=== PATIENT | male | born 1960 | race Caucasian/White ===

== ENCOUNTER 2023-07-08 23:08 | Inpatient (IN) ==
--- NOTE | 2023-07-08 23:27 | Emergency Department Note ---
Impression & Plan Syncope and collapse, Upper back pain, Acute hypotension, PRESLEY (acute kidney injury), Elevated lactic acid level, Acute dehydration ED Provider Note HISTORY OF PRESENT ILLNESS: Patient is a 62-year-old male presenting with neck and upper back pain. Patient reportedly had 2 syncopal episodes this evening. The first syncopal episode he fell and struck the back of his head and neck. He reportedly was ambulatory after the incident and on initial EMS arrival the patient seemed to be more with it. A cervical collar was placed and he was very agitated and demanded that he walked to the stretcher. However, EMS reports that when he walked to the stretcher he had then again passed out. reports that for the first episode of syncope she heard a loud noise and went to find the patient and found him laying on the floor. EMS states that after a syncopal episode patient became hypotensive. Patient reports that he had a few "very small glasses of wine tonight." Patient is answering questions, but is sleepy and slow to respond. When asked for more details about the events leading up to him passing out twice, the patient reports "I do not know what happened." ROS: as above PHYSICAL EXAM: Constitutional: Patient appears in no acute distress. HENT: Head: Normocephalic and atraumatic. Eyes: EOMI, PERRL Mouth/Throat: Mucous membranes moist. Neck: Trachea midline. Neck supple. Cervical collar in place. Patient has lower cervical midline tenderness to palpation. Cardiovascular: RRR, No murmurs, rubs or gallops. Intact distal pulses. Pulmonary/Chest: No respiratory distress. Breath sounds clear and equal bilaterally. No wheezes or rales. No chest wall tenderness to palpation. Abdominal: Abdomen soft, no tenderness, rebound or guarding. Back: No midline spinal tenderness, no paraspinal tenderness, no CVA tenderness. Musculoskeletal: No edema, tenderness or deformity noted. Skin: Warm and dry. No rash, erythema, pallor or cyanosis Psychiatric: Appropriate mood and affect for situation. Neurological: Alert and keenly responsive. CN II-XII grossly intact, moving all extremities equally and fully. MDM: - Vitals signs showed hypotension. Patient profoundly hypotensive. Started on 2 L normal saline. However, pressure was only 89 systolic after a liter. Significant concern for dissection, given the patient's neck and upper back pain and his multiple syncopal episodes. He was started on peripheral Levophed for pressure support and he was given 1 mg of IV Ativan for his significant agitation in order to obtain CT imaging. His i-STAT creatinine is noted to be 3.0, but again significant concern for dissection so we will proceed with contrast scans. - History obtained via patient. History as above. - Chronic conditions affecting care: HTN - Differential diagnoses include, but are not limited to: Aortic dissection; pulmonary embolism; intracranial hemorrhage; CVA; ACS; dehydration; intra- abdominal trauma - Order placed for continuous cardiac monitoring. At this time, monitor showed rate of 80 bpm with normal sinus rhythm, per my interpretation. - External medical records reviewed. EMS run sheet was reviewed. Patient was hypotensive prehospital. Cervical collar applied prehospital. - EKG interpreted by myself showed normal sinus rhythm. Rate 72 bpm. QT 394. No acute ischemic changes. - Laboratory workup interpreted by myself showed normal WBC; stable electrolytes; PRESLEY (Cr 2.82); elevated lactate (3.3); elevated anion gap (12); hypermagnesemia (Mg 2.6); normal procalcitonin; normal troponin; elevated alcohol (150.8) - CT head wo contrast negative for acute pathology, per radiology - CT cervical and thoracic spines wo contrast negative for acute pathology, per radiology. - Patient was on levophed for about 1 hour for pressure support. He stood up and ripped off his collar and was complaining of upper back and left arm pain. He was given 50 mcg of IV fentanyl. However, on reassessment at 3:30 AM, the patient is still complaining of pain and reports the fentanyl did nothing. He was given 0.5 mg of IV Dilaudid. He is refusing to put back on the cervical collar. - CTA chest/abdomen/pelvis were ordered and obtained, but significant delay in radiology reads being dictated. Reads finally resulted at 04:30 AM and were negative for acute pathology. - Patient given a third 1L NS in ER. His blood pressure remained stable after fluid rehydration. - presents later and supplies a little bit more history. Reports the patient has been having generalized bodyaches and feeling generally unwell for the last 3 to 4 days. Reports he has been tolerating oral intake without difficulty at home. Repeat lactate is still elevated, though trending down to 2.1. Patient's syncope likely related to hypotension in the setting of his dehydration. COVID/flu/RSV swab was added to the workup. - Discussion was had with immigration case worker about patient's case and need for admission - Hospitalist consulted for admission - [facility]. I have personally spent 34 minutes of critical care time in the direct management of this patient. This includes bedside care, interpretation of diagnostic studies, and testing, discussion with consultants, patient, and family members, and other required patient management activities. This 34 minutes is in excess of all separately billable procedures. ASSESSMENT AND PLAN: Diagnosis: syncope; PRESLEY; elevated lactic acid; upper back pain; acute hypotension; acute dehydration Plan: admit Past Med/Surg History Medical History (Updated 07/09/23 @ 04:51 by Ana Rosa White MD) Leukopenia Surgical History S/P foot surgery, right 2002 - right plantar fascia foot surgery Family History Denies family history of Ovarian cancer Prostate cancer Myocardial infarction Breast cancer Colorectal cancer Social History (Updated 06/22/23 @ 07:58 by Faraz Solano LPN) Smoking Status: Never smoker Second Hand Exposure: No; Do You Dip or Chew Tobacco: No; Hx Alcohol Use: Yes Alcohol type: beer Alcohol Intake Frequency Comment: about 4-5 drinks per night about 5 days per week. Hx Substance Use: No Preferred Language: Persian Visual Impairment: No Limitations Hearing Ability: Normal marital status: Current Living Situation: Family current occupational status: employed current occupation: senior living advisor Feels Safe at Home: Yes Diet: other Diet Comment: healthy diet caffeine: Yes Dental Care, Regularly: Yes Physical Activity Frequency: 1-2 Times per Week Physical Activity Frequency Comment: Has slown down since he injured his elbow. Seatbelt Use: always Sunscreen Use: Yes Allergies Allergies Allergy/AdvReac Type Severity Reaction Status Date / Time No Known Allergies Allergy Unknown Verified 07/08/23 23:44 Home Meds Home Medications Medication Instructions Recorded Confirmed multivitamin 1 tab PO DAILY 07/08/23 07/08/23 Previous Rx's Medication Instructions Recorded rosuvastatin 20 mg tablet 20 mg PO DAILY #90 tabs 09/15/22 clopidogrel 75 mg tablet 75 mg PO DAILY #90 tabs 06/22/23 olmesartan 40 mg tablet 40 mg PO DAILY #90 tabs 06/22/23 Results & Data (ED) Vital Signs Vital Signs - 24 hr 07/08/23 23:14 07/08/23 23:19 07/08/23 23:22 Temperature 36.8 C Temperature Source Oral Pulse Rate 74 71 73 Pulse Rate [Apical] Pulse Rate from SpO2 Sensor 73 Pulse Rhythm Respiratory Rate 21 20 Respiratory Effort / Characteristics Non-Labored Spontaneous Respiratory Depth Normal Respiratory Pattern Regular Blood Pressure 73/60 L 73/45 L Blood Pressure [Right Arm] Blood Pressure Mean 64 48 Blood Pressure Mean [Right Arm] Pulse Oximetry 100 97 Oxygen Delivery Method Room Air Room Air Sepsis Recent Fever Within 48 Hours No Sepsis New/Unexplained Change in Mental Status Yes Sepsis Action Taken by Nursing No Action Required 07/08/23 23:26 07/08/23 23:30 07/08/23 23:30 Temperature Temperature Source Pulse Rate 73 79 80 Pulse Rate [Apical] Pulse Rate from SpO2 Sensor 68 102 H Pulse Rhythm Regular Respiratory Rate 16 20 23 Respiratory Effort / Characteristics Respiratory Depth Respiratory Pattern Blood Pressure 66/47 L Blood Pressure [Right Arm] Blood Pressure Mean 53 Blood Pressure Mean [Right Arm] Pulse Oximetry 95 98 98 Oxygen Delivery Method Room Air Room Air Sepsis Recent Fever Within 48 Hours Sepsis New/Unexplained Change in Mental Status Sepsis Action Taken by Nursing 07/08/23 23:31 07/08/23 23:38 07/08/23 23:40 Temperature Temperature Source Pulse Rate 75 85 81 Pulse Rate [Apical] Pulse Rate from SpO2 Sensor 82 81 81 Pulse Rhythm Respiratory Rate 21 16 18 Respiratory Effort / Characteristics Respiratory Depth Respiratory Pattern Blood Pressure 68/54 L 77/56 L 78/53 L Blood Pressure [Right Arm] Blood Pressure Mean 55 66 65 Blood Pressure Mean [Right Arm] Pulse Oximetry 94 98 97 Oxygen Delivery Method Sepsis Recent Fever Within 48 Hours Sepsis New/Unexplained Change in Mental Status Sepsis Action Taken by Nursing 07/08/23 23:45 07/09/23 00:00 07/09/23 00:05 Temperature Temperature Source Pulse Rate 84 80 79 Pulse Rate [Apical] Pulse Rate from SpO2 Sensor 80 86 Pulse Rhythm Respiratory Rate 16 18 22 Respiratory Effort / Characteristics Respiratory Depth Respiratory Pattern Blood Pressure 84/62 L 90/59 L 126/72 Blood Pressure [Right Arm] Blood Pressure Mean 69 69 90 Blood Pressure Mean [Right Arm] Pulse Oximetry 97 96 92 Oxygen Delivery Method Sepsis Recent Fever Within 48 Hours Sepsis New/Unexplained Change in Mental Status Sepsis Action Taken by Nursing 07/09/23 00:41 07/09/23 00:45 07/09/23 00:50 Temperature Temperature Source Pulse Rate 93 H 88 89 Pulse Rate [Apical] Pulse Rate from SpO2 Sensor 94 H 88 86 Pulse Rhythm Respiratory Rate 20 23 20 Respiratory Effort / Characteristics Respiratory Depth Respiratory Pattern Blood Pressure 123/93 117/74 117/77 Blood Pressure [Right Arm] Blood Pressure Mean 103 90 90 Blood Pressure Mean [Right Arm] Pulse Oximetry 93 99 100 Oxygen Delivery Method Sepsis Recent Fever Within 48 Hours Sepsis New/Unexplained Change in Mental Status Sepsis Action Taken by Nursing 07/09/23 00:55 07/09/23 01:00 07/09/23 01:05 Temperature Temperature Source Pulse Rate 89 90 91 H Pulse Rate [Apical] Pulse Rate from SpO2 Sensor 88 91 H 84 Pulse Rhythm Respiratory Rate 18 20 18 Respiratory Effort / Characteristics Respiratory Depth Respiratory Pattern Blood Pressure 117/97 129/84 131/80 Blood Pressure [Right Arm] Blood Pressure Mean 103 99 97 Blood Pressure Mean [Right Arm] Pulse Oximetry 99 97 97 Oxygen Delivery Method Sepsis Recent Fever Within 48 Hours Sepsis New/Unexplained Change in Mental Status Sepsis Action Taken by Nursing 07/09/23 01:15 07/09/23 01:20 07/09/23 01:25 Temperature Temperature Source Pulse Rate 92 H 93 H 92 H Pulse Rate [Apical] Pulse Rate from SpO2 Sensor 91 H 93 H 91 H Pulse Rhythm Respiratory Rate 18 20 22 Respiratory Effort / Characteristics Respiratory Depth Respiratory Pattern Blood Pressure 131/86 129/88 128/80 Blood Pressure [Right Arm] Blood Pressure Mean 101 101 96 Blood Pressure Mean [Right Arm] Pulse Oximetry 95 96 97 Oxygen Delivery Method Sepsis Recent Fever Within 48 Hours Sepsis New/Unexplained Change in Mental Status Sepsis Action Taken by Nursing 07/09/23 01:30 07/09/23 01:35 07/09/23 01:40 Temperature Temperature Source Pulse Rate 94 H 90 Pulse Rate [Apical] Pulse Rate from SpO2 Sensor 95 H 90 Pulse Rhythm Respiratory Rate 22 17 Respiratory Effort / Characteristics Respiratory Depth Respiratory Pattern Blood Pressure 126/83 135/85 124/85 Blood Pressure [Right Arm] Blood Pressure Mean 97 99 98 Blood Pressure Mean [Right Arm] Pulse Oximetry 97 97 Oxygen Delivery Method Sepsis Recent Fever Within 48 Hours Sepsis New/Unexplained Change in Mental Status Sepsis Action Taken by Nursing 07/09/23 01:45 07/09/23 01:50 07/09/23 02:00 Temperature Temperature Source Pulse Rate 89 93 H 92 H Pulse Rate [Apical] Pulse Rate from SpO2 Sensor 90 92 H Pulse Rhythm Respiratory Rate 16 20 17 Respiratory Effort / Characteristics Respiratory Depth Respiratory Pattern Blood Pressure 137/86 129/89 137/81 Blood Pressure [Right Arm] Blood Pressure Mean 103 102 97 Blood Pressure Mean [Right Arm] Pulse Oximetry 98 97 96 Oxygen Delivery Method Sepsis Recent Fever Within 48 Hours Sepsis New/Unexplained Change in Mental Status Sepsis Action Taken by Nursing 07/09/23 02:05 07/09/23 02:10 07/09/23 02:15 Temperature Temperature Source Pulse Rate 96 H 93 H 93 H Pulse Rate [Apical] Pulse Rate from SpO2 Sensor 97 H 93 H 89 Pulse Rhythm Respiratory Rate 16 17 16 Respiratory Effort / Characteristics Respiratory Depth Respiratory Pattern Blood Pressure 120/73 119/79 118/78 Blood Pressure [Right Arm] Blood Pressure Mean 88 92 91 Blood Pressure Mean [Right Arm] Pulse Oximetry 94 95 96 Oxygen Delivery Method Sepsis Recent Fever Within 48 Hours Sepsis New/Unexplained Change in Mental Status Sepsis Action Taken by Nursing 07/09/23 02:20 07/09/23 02:25 07/09/23 02:42 Temperature Temperature Source Pulse Rate 92 H 99 H 92 H Pulse Rate [Apical] Pulse Rate from SpO2 Sensor 93 H 98 H 92 H Pulse Rhythm Respiratory Rate 17 18 Respiratory Effort / Characteristics Respiratory Depth Respiratory Pattern Blood Pressure 122/78 108/74 134/80 Blood Pressure [Right Arm] Blood Pressure Mean 92 85 98 Blood Pressure Mean [Right Arm] Pulse Oximetry 96 96 99 Oxygen Delivery Method Sepsis Recent Fever Within 48 Hours Sepsis New/Unexplained Change in Mental Status Sepsis Action Taken by Nursing 07/09/23 03:30 Temperature Temperature Source Pulse Rate Pulse Rate [Apical] 86 Pulse Rate from SpO2 Sensor Pulse Rhythm Respiratory Rate 20 Respiratory Effort / Characteristics Non-Labored Respiratory Depth Normal Respiratory Pattern Blood Pressure Blood Pressure [Right Arm] 118/76 Blood Pressure Mean Blood Pressure Mean [Right Arm] 90 Pulse Oximetry 99 Oxygen Delivery Method Room Air Sepsis Recent Fever Within 48 Hours Sepsis New/Unexplained Change in Mental Status Sepsis Action Taken by Nursing Laboratory Data 07/08/23 23:21 07/08/23 23:21 Lab Results 07/08/23 07/08/23 07/08/23 Range/Units 23:21 23:26 23:40 WBC 6.61 (4.8-10.8) K/ul RBC 4.51 L (4.70-6.10) M/uL Hgb 14.6 (14.0-18.0) g/dl POC Hgb 14.6 (14.0-18.0) g/dl Hct 42.3 (42.0-52.0) % POC Hct 43 (42-52) % MCV 93.8 (80.0-100.0) fL MCH 32.4 (25.0-34.0) pg MCHC 34.5 (32.0-36.0) g/dL RDW Std Deviation 41.3 (36.4-46.3) fL RDW Coeff of Heydi 11.9 (11.5-14.5) % Plt Count 269 (130-400) K/uL MPV 10.1 (9.4-12.4) fL Immature Gran % (Auto) 0.3 % Neut % (Auto) 45.5 % Lymph % (Auto) 41.1 % Ashley % (Auto) 10.7 % Eos % (Auto) 1.8 % Baso % (Auto) 0.6 % Neut # (Auto) 3.00 (1.40-6.50) K/uL Lymph # (Auto) 2.72 (1.20-3.40) K/uL Ashley # (Auto) 0.71 H (0.11-0.59) K/uL Eos # (Auto) 0.12 (0.00-0.50) K/uL Baso # (Auto) 0.04 (0.00-0.20) K/uL Immature Gran # (Auto) 0.02 (0.01-0.20) K/uL PT 10.3 (9.0-12.0) Seconds INR 0.9 (0.9-1.1) POC Sodium 137 (135-144) mmol/L Sodium 136 (136-145) mmol/L POC Potassium 3.6 (3.3-5.0) mmol/L Potassium 3.5 (3.5-5.1) mmol/L POC Chloride 100 L (101-112) mmol/L Chloride 101 (98-107) mmol/L Carbon Dioxide 23 (21-32) mmol/L POC Total CO2 25 (24-31) mmol/L Anion Gap 12 H (3-11) POC Anion Gap 17.0 (16-25) mmol/L POC BUN 42 H (7-18) mg/dl BUN 47 H (6-23) mg/dl Creatinine 2.82 H (0.6-1.4) mg/dl POC Creatinine 3.0 H (0.6-1.3) mg/dl Est Cr Clr Drug Dosing 29.8 ml/min Est GFR ( Amer) 26.6 ml/min Est GFR (Non-Af Amer) 22.9 ml/min BUN/Creatinine Ratio 16.7 (10-20) Glucose 101 H (70-99(Fasting)) mg/dl POC Glucose (other) 95 (70-99) mg/dl Lactate (0.4-2.0) mmol/L Calcium 9.2 (8.6-10.3) mg/dl POC Ioniz Calcium Juan Antonio 1.07 L (1.12-1.32) mmol/l Magnesium 2.6 H (1.7-2.4) mg/dl Total Bilirubin 0.6 (0.2-1.0) mg/dl AST 21 (13-39) U/L ALT 30 (7-52) U/L Alkaline Phosphatase 61 (34-104) U/L Troponin I High Sens 3.7 (0-20) pg/ml Total Protein 7.1 (6.0-8.3) gm/dl Albumin 4.3 (3.4-5.0) gm/dl Globulin 2.8 (2.5-4.0) gm/dl Albumin/Globulin Ratio 1.5 (0.9-2) Procalcitonin 0.40 (0-0.5) ng/ml Ethyl Alcohol mg/dL 150.8 H (<10.0) mg/dl Blood Type O Positive Antibody Screen NEGATIVE 07/09/23 07/09/23 Range/Units 01:03 03:48 WBC (4.8-10.8) K/ul RBC (4.70-6.10) M/uL Hgb (14.0-18.0) g/dl POC Hgb (14.0-18.0) g/dl Hct (42.0-52.0) % POC Hct (42-52) % MCV (80.0-100.0) fL MCH (25.0-34.0) pg MCHC (32.0-36.0) g/dL RDW Std Deviation (36.4-46.3) fL RDW Coeff of Heydi (11.5-14.5) % Plt Count (130-400) K/uL MPV (9.4-12.4) fL Immature Gran % (Auto) % Neut % (Auto) % Lymph % (Auto) % Ashley % (Auto) % Eos % (Auto) % Baso % (Auto) % Neut # (Auto) (1.40-6.50) K/uL Lymph # (Auto) (1.20-3.40) K/uL Ashley # (Auto) (0.11-0.59) K/uL Eos # (Auto) (0.00-0.50) K/uL Baso # (Auto) (0.00-0.20) K/uL Immature Gran # (Auto) (0.01-0.20) K/uL PT (9.0-12.0) Seconds INR (0.9-1.1) POC Sodium (135-144) mmol/L Sodium (136-145) mmol/L POC Potassium (3.3-5.0) mmol/L Potassium (3.5-5.1) mmol/L POC Chloride (101-112) mmol/L Chloride (98-107) mmol/L Carbon Dioxide (21-32) mmol/L POC Total CO2 (24-31) mmol/L Anion Gap (3-11) POC Anion Gap (16-25) mmol/L POC BUN (7-18) mg/dl BUN (6-23) mg/dl Creatinine (0.6-1.4) mg/dl POC Creatinine (0.6-1.3) mg/dl Est Cr Clr Drug Dosing ml/min Est GFR ( Amer) ml/min Est GFR (Non-Af Amer) ml/min BUN/Creatinine Ratio (10-20) Glucose (70-99(Fasting)) mg/dl POC Glucose (other) (70-99) mg/dl Lactate 3.3 H* 2.1 H* (0.4-2.0) mmol/L Calcium (8.6-10.3) mg/dl POC Ioniz Calcium Juan Antonio (1.12-1.32) mmol/l Magnesium (1.7-2.4) mg/dl Total Bilirubin (0.2-1.0) mg/dl AST (13-39) U/L ALT (7-52) U/L Alkaline Phosphatase (34-104) U/L Troponin I High Sens (0-20) pg/ml Total Protein (6.0-8.3) gm/dl Albumin (3.4-5.0) gm/dl Globulin (2.5-4.0) gm/dl Albumin/Globulin Ratio (0.9-2) Procalcitonin (0-0.5) ng/ml Ethyl Alcohol mg/dL (<10.0) mg/dl Blood Type Antibody Screen Administered Medications Norepinephrine Bitartrate (Levophed/D5w) 4 mg in 250 mls @ 0 mls/hr IV .Q0M [facility]; Protocol Stop: 08/07/23 23:44 Last Titration: 07/09/23 02:38 Dose: 0 mcg/kg/min, 0 mls/hr Documented By: Admin: 07/09/23 00:01 Dose: 0.05 mcg/kg/min, 16.1 mls/hr Documented By: AN Co-signed By: TEE Discontinued Medications Fentanyl Citrate (Fentanyl Citrate Pf 100 Mcg/2 Ml Vial) 50 mcg IV NOW STA Stop: 07/09/23 02:32 Last Admin: 07/09/23 02:39 Dose: 50 mcg Documented By: TEE Hydromorphone HCl (Hydromorphone Inj 0.5 Mg/0.5 Ml Syr) 0.5 mg IV NOW STA Stop: 07/09/23 03:32 Last Admin: 07/09/23 03:33 Dose: 0.5 mg Documented By: HB Sodium Chloride (Nss) 2,000 mls @ 999 mls/hr IV .Q2H1M ONE Stop: 07/09/23 01:24 Last Infusion: 07/09/23 01:54 Dose: Infused Documented By: Admin: 07/08/23 23:29 Dose: 999 mls/hr Documented By: TEE Sodium Chloride (Nss) 1,000 mls @ 999 mls/hr IV .Q1H1M ONE Stop: 07/09/23 00:59 Last Infusion: 07/09/23 04:30 Dose: Infused Documented By: Admin: 07/09/23 03:25 Dose: 999 mls/hr Documented By: CLEMENCIA Ioversol (Optiray 320 125ml) 118 ml IV ONCE ONE Stop: 07/09/23 00:42 Last Admin: 07/09/23 00:41 Dose: 118 ml Documented By: MARY ANN Lorazepam (Lorazepam 1 Mg/1 Ml Syr Ed Inj Use) 1 mg IV ONE STA Stop: 07/08/23 23:53 Last Admin: 07/09/23 00:08 Dose: 1 mg Documented By: XIOMARA Imaging Data Radiologist's Impression: Cervical Spine CT 07/08/23 23:24 Exam(s): CT C SPINE EXAM: CT Cervical Spine Without Intravenous Contrast CLINICAL HISTORY: Reason for exam: neck pain s/p fall from standing. TECHNIQUE: Axial computed tomography images of the cervical spine without intravenous contrast. CTDI is 36.55 mGy and DLP is 4923.4 mGy-cm. Automated exposure control was utilized for the study. A dose lowering technique was utilized adhering to the principles of ALARA. COMPARISON: No relevant prior studies available. FINDINGS: Vertebrae: Unremarkable. No acute fracture. Discs/spinal canal/neural foramina: Multilevel cervical spondylopathy resulting in varying degrees of canal or foraminal stenosis Soft tissues: Unremarkable. IMPRESSION: No acute osseous pathology Multilevel cervical spondylopathy resulting in varying degrees of canal or foraminal stenosis Electronically signed by: Yonny Freedman MD 07/09/23 02:[address] 07/08/23 23:24 Exam(s): CT HEAD Without Contrast EXAM: CT Head Without Intravenous Contrast CLINICAL HISTORY: Reason for exam: confusion; fall from standing. TECHNIQUE: Axial computed tomography images of the head/brain without intravenous contrast. CTDI is 36.55 mGy and DLP is 4923.4 mGy-cm. Automated exposure control was utilized for the study. A dose lowering technique was utilized adhering to the principles of ALARA. COMPARISON: No relevant prior studies available. FINDINGS: Brain: Unremarkable. No hemorrhage. No significant white matter disease. No edema. Ventricles: Unremarkable. No ventriculomegaly. Bones/joints: Unremarkable. No acute fracture. Soft tissues: Unremarkable. Sinuses: Unremarkable as visualized. No acute sinusitis. Mastoid air cells: Unremarkable as visualized. No mastoid effusion. IMPRESSION: Normal head/brain CT. Electronically signed by: Yonny Freedman MD 07/09/23 02:[address] 07/08/23 23:24 Exam(s): CT T SPINE EXAM: CT Thoracic Spine Without Intravenous Contrast CLINICAL HISTORY: Reason for exam: upper back pain s/p fall from standing. TECHNIQUE: Axial computed tomography images of the thoracic spine without intravenous contrast. CTDI is 36.55 mGy and DLP is 4923.4 mGy-cm. Automated exposure control was utilized for the study. A dose lowering technique was utilized adhering to the principles of ALARA. COMPARISON: No relevant prior studies available. FINDINGS: Vertebrae: Unremarkable. No acute fracture. Discs/spinal canal/neural foramina: No acute findings. No spinal canal stenosis. Soft tissues: Unremarkable. IMPRESSION: Normal thoracic spine CT. Electronically signed by: Yonny Freedman MD 07/09/23 02:25 AM Chest CTA 07/08/23 23:28 Exam(s): CTA CHEST W/WO Contrast IV Amt: 118 ml opti 320 EXAM: CT Angiography Chest Without and With Intravenous Contrast CLINICAL HISTORY: Reason for exam: recurrent syncopal episodes; hypotension. TECHNIQUE: Axial computed tomographic angiography images of the chest without and with intravenous contrast. CTDI is 36.55 mGy and DLP is 4923.4 mGy-cm. Automated exposure control was utilized for the study. A dose lowering technique was utilized adhering to the principles of ALARA. MIP reconstructed images were created and reviewed. CONTRAST: Patient received 118 ml opti 320 of IV contrast COMPARISON: No relevant prior studies available. FINDINGS: Pulmonary arteries: No central pulmonary embolus Aorta: No acute findings. No thoracic aortic aneurysm. Lungs: Unremarkable. No mass. No consolidation. Pleural space: Unremarkable. No significant effusion. No pneumothorax. Heart: Unremarkable. No cardiomegaly. No significant pericardial effusion. No evidence of RV dysfunction. Bones/joints: No acute fracture. No dislocation. Soft tissues: Unremarkable. Lymph nodes: Unremarkable. No enlarged lymph nodes. IMPRESSION: Normal chest CTA. Electronically signed by: Yonny Freedman MD 07/09/23 04:01 AM Abdomen/Pelvis CTA 07/08/23 23:40 Exam(s): CTA ABDOMEN + PELVIS With Contrast IV Amt: 118 ml opti 320 EXAM: CT Angiography Abdomen and Pelvis With Intravenous Contrast CLINICAL HISTORY: Reason for exam: trauma; syncope. TECHNIQUE: Axial computed tomographic angiography images of the abdomen and pelvis with intravenous contrast. CTDI is 36.55 mGy and DLP is 4923.4 mGy-cm. Automated exposure control was utilized for the study. A dose lowering technique was utilized adhering to the principles of ALARA. MIP reconstructed images were created and reviewed. CONTRAST: Patient received 118 ml opti 320 of IV contrast COMPARISON: No relevant prior studies available. FINDINGS: VASCULATURE: Aorta: No evidence of aortic aneurysm or dissection along the aorta or subsequent branches. Celiac trunk and mesenteric arteries: No acute findings. No occlusion or significant stenosis. Renal arteries: No acute findings. No occlusion or significant stenosis. Iliac arteries: No acute findings. No occlusion or significant stenosis. Lung bases: Unremarkable. No mass. No consolidation. ABDOMEN: Liver: Unremarkable. No mass. Gallbladder and bile ducts: Unremarkable. No calcified stones. No ductal dilation. Pancreas: Unremarkable. No ductal dilation. No mass. Spleen: Unremarkable. No splenomegaly. Adrenals: Unremarkable. No mass. Kidneys and ureters: Unremarkable. No hydronephrosis. No solid mass. Stomach and bowel: Colonic diverticulosis. No evidence of diverticulitis. No obstruction. PELVIS: Appendix: Normal appendix. Bladder: Unremarkable. No mass. Reproductive: Unremarkable as visualized. ABDOMEN and PELVIS: Intraperitoneal space: Unremarkable. No significant fluid collection. No free air. Bones/joints: Mild celiac axis ostial stenosis. No acute fracture. No dislocation. Soft tissues: Gynecomastia. Lymph nodes: Unremarkable. No enlarged lymph nodes. IMPRESSION: 1. No evidence of traumatic aortic injury within the visualized aorta or subsequent branches. 2. No evidence of aortic aneurysm or dissection along the aorta or subsequent branches. 3. Mild celiac axis ostial stenosis. 4. No other acute findings. 5. Incidental findings as described. Electronically signed by: Bill Suresh MD 07/09/23 04:19 AM Discharge Plan Visit Data Chief Complaint: Fall Stated Complaint: Fall, Neck Pain, Dizziness ED Provider: Ana Rosa White Discharge Problem: Syncope and collapse, Upper back pain, Acute hypotension, PRESLEY (acute kidney injury), Elevated lactic acid level, Acute dehydration Forms Stand Alone Forms: My [facility] Prescriptions Prescriptions: No Action rosuvastatin 20 mg tablet 20 mg PO DAILY Qty: 90 3RF olmesartan 40 mg tablet 40 mg PO DAILY Qty: 90 3RF clopidogrel 75 mg tablet 75 mg PO DAILY Qty: 90 3RF multivitamin Tablet 1 tab PO DAILY Referrals Referrals: Zack Adamson MD [Primary Care Provider] -
[2023-07-08] MEDS: SODIUM CHLORIDE 0.9% 2,000 ML IV ONE (23:29)
[2023-07-08 23:38] LABS: iSTAT Hemoglobin 14.6 g/dl (14.0-18.0); iSTAT Ionized Calcium 1.07 mmol/l (1.12-1.32); iSTAT Potassium 3.6 mmol/L (3.3-5.0)
[2023-07-08] MEDS ORDERED: STAT IV Infusion **Titration per Protocol STA (23:52)
[2023-07-08 23:54] LABS: Hematocrit (blood only) 42.3 % (42.0-52.0); Hemoglobin 14.6 g/dl (14.0-18.0); Mean Corpuscular Hemoglobin 32.4 pg (25.0-34.0); Mean Corpuscular Hgb Conc 34.5 g/dL (32.0-36.0); Mean Corpuscular Volume 93.8 fL (80.0-100.0); Mean Platelet Volume 10.1 fL (9.4-12.4); Platelet Count 269 K/uL (130-400); RDW Coefficient of Variation 11.9 % (11.5-14.5); RDW Standard Deviation 41.3 fL (36.4-46.3); Red Blood Count 4.51 M/uL (4.70-6.10); White Blood Count 6.61 K/ul (4.8-10.8)
[2023-07-09] MEDS: NOREPINEPHRINE/D5W 4 MG/250 ML PLCT IV SCH (00:01)
[2023-07-09 00:04] LABS: Albumin Globulin Ratio 1.5 (0.9-2); Albumin Level 4.3 gm/dl (3.4-5.0); BUN Creatinine Ratio 16.7 (10-20); Bilirubin,Total 0.6 mg/dl (0.2-1.0); Calcium 9.2 mg/dl (8.6-10.3); Creatinine Clr Calc Pharmacy 29.8 ml/min; Est GFR (African American) 26.6 ml/min; Est GFR (Non-African American) 22.9 ml/min; Globulin 2.8 gm/dl (2.5-4.0); Magnesium 2.6 mg/dl (1.7-2.4); Potassium 3.5 mmol/L (3.5-5.1); Total Protein 7.1 gm/dl (6.0-8.3)
[2023-07-09] MEDS: LORazepam 1 MG/1 ML SYR ED Inj Use IV STA (00:08)
[2023-07-09 00:11] LABS: Troponin I High Sensitivity 3.7 pg/ml (0-20)
[2023-07-09 00:22] LABS: Basophils # (auto) 0.04 K/uL (0.00-0.20); Basophils % (auto) 0.6 %; Eosinophils # (auto) 0.12 K/uL (0.00-0.50); Eosinophils % (auto) 1.8 %; Immature Granulocytes # (auto) 0.02 K/uL (0.01-0.20); Immature Granulocytes % (auto) 0.3 %; Lymphocytes # (auto) 2.72 K/uL (1.20-3.40); Lymphocytes % (auto) 41.1 %; Monocytes # (auto) 0.71 K/uL (0.11-0.59); Monocytes % (auto) 10.7 %; Neutrophils % (auto) 45.5 %
[2023-07-09 00:24] LABS: INR 0.9 (0.9-1.1); Prothrombin Time 10.3 Seconds (9.0-12.0)
[2023-07-09] MEDS: OPTIRAY 320 125ml IV ONE (00:41)
--- NOTE | 2023-07-09 02:19 | CT Scan Report ---
Exam(s): CT C SPINE EXAM: CT Cervical Spine Without Intravenous Contrast CLINICAL HISTORY: Reason for exam: neck pain s/p fall from standing. TECHNIQUE: Axial computed tomography images of the cervical spine without intravenous contrast. CTDI is 36.55 mGy and DLP is 4923.4 mGy-cm. Automated exposure control was utilized for the study. A dose lowering technique was utilized adhering to the principles of ALARA. COMPARISON: No relevant prior studies available. FINDINGS: Vertebrae: Unremarkable. No acute fracture. Discs/spinal canal/neural foramina: Multilevel cervical spondylopathy resulting in varying degrees of canal or foraminal stenosis Soft tissues: Unremarkable. IMPRESSION: No acute osseous pathology Multilevel cervical spondylopathy resulting in varying degrees of canal or foraminal stenosis Electronically signed by: Yonny Freedman MD 07/09/23 02:18 AM
--- NOTE | 2023-07-09 02:26 | CT Scan Report ---
Exam(s): CT T SPINE EXAM: CT Thoracic Spine Without Intravenous Contrast CLINICAL HISTORY: Reason for exam: upper back pain s/p fall from standing. TECHNIQUE: Axial computed tomography images of the thoracic spine without intravenous contrast. CTDI is 36.55 mGy and DLP is 4923.4 mGy-cm. Automated exposure control was utilized for the study. A dose lowering technique was utilized adhering to the principles of ALARA. COMPARISON: No relevant prior studies available. FINDINGS: Vertebrae: Unremarkable. No acute fracture. Discs/spinal canal/neural foramina: No acute findings. No spinal canal stenosis. Soft tissues: Unremarkable. IMPRESSION: Normal thoracic spine CT. Electronically signed by: Yonny Freedman MD 07/09/23 02:25 AM
--- NOTE | 2023-07-09 02:27 | CT Scan Report ---
Exam(s): CT HEAD Without Contrast EXAM: CT Head Without Intravenous Contrast CLINICAL HISTORY: Reason for exam: confusion; fall from standing. TECHNIQUE: Axial computed tomography images of the head/brain without intravenous contrast. CTDI is 36.55 mGy and DLP is 4923.4 mGy-cm. Automated exposure control was utilized for the study. A dose lowering technique was utilized adhering to the principles of ALARA. COMPARISON: No relevant prior studies available. FINDINGS: Brain: Unremarkable. No hemorrhage. No significant white matter disease. No edema. Ventricles: Unremarkable. No ventriculomegaly. Bones/joints: Unremarkable. No acute fracture. Soft tissues: Unremarkable. Sinuses: Unremarkable as visualized. No acute sinusitis. Mastoid air cells: Unremarkable as visualized. No mastoid effusion. IMPRESSION: Normal head/brain CT. Electronically signed by: Yonny Freedman MD 07/09/23 02:26 AM
[2023-07-09] MEDS: fentaNYL citrate PF 100 MCG/2 ML VIAL IV STA (02:39)
[2023-07-09] MEDS: SODIUM CHLORIDE 0.9% 1,000 ML IV ONE ×2 (03:25→06:20)
[2023-07-09] MEDS: HYDROmorphone INJ 0.5 MG/0.5 ML SYR IV STA (03:33)
--- NOTE | 2023-07-09 04:02 | CT Scan Report ---
Exam(s): CTA CHEST W/WO Contrast IV Amt: 118 ml opti 320 EXAM: CT Angiography Chest Without and With Intravenous Contrast CLINICAL HISTORY: Reason for exam: recurrent syncopal episodes; hypotension. TECHNIQUE: Axial computed tomographic angiography images of the chest without and with intravenous contrast. CTDI is 36.55 mGy and DLP is 4923.4 mGy-cm. Automated exposure control was utilized for the study. A dose lowering technique was utilized adhering to the principles of ALARA. MIP reconstructed images were created and reviewed. CONTRAST: Patient received 118 ml opti 320 of IV contrast COMPARISON: No relevant prior studies available. FINDINGS: Pulmonary arteries: No central pulmonary embolus Aorta: No acute findings. No thoracic aortic aneurysm. Lungs: Unremarkable. No mass. No consolidation. Pleural space: Unremarkable. No significant effusion. No pneumothorax. Heart: Unremarkable. No cardiomegaly. No significant pericardial effusion. No evidence of RV dysfunction. Bones/joints: No acute fracture. No dislocation. Soft tissues: Unremarkable. Lymph nodes: Unremarkable. No enlarged lymph nodes. IMPRESSION: Normal chest CTA. Electronically signed by: Yonny Freedman MD 07/09/23 04:01 AM
--- NOTE | 2023-07-09 04:20 | CT Scan Report ---
Exam(s): CTA ABDOMEN + PELVIS With Contrast IV Amt: 118 ml opti 320 EXAM: CT Angiography Abdomen and Pelvis With Intravenous Contrast CLINICAL HISTORY: Reason for exam: trauma; syncope. TECHNIQUE: Axial computed tomographic angiography images of the abdomen and pelvis with intravenous contrast. CTDI is 36.55 mGy and DLP is 4923.4 mGy-cm. Automated exposure control was utilized for the study. A dose lowering technique was utilized adhering to the principles of ALARA. MIP reconstructed images were created and reviewed. CONTRAST: Patient received 118 ml opti 320 of IV contrast COMPARISON: No relevant prior studies available. FINDINGS: VASCULATURE: Aorta: No evidence of aortic aneurysm or dissection along the aorta or subsequent branches. Celiac trunk and mesenteric arteries: No acute findings. No occlusion or significant stenosis. Renal arteries: No acute findings. No occlusion or significant stenosis. Iliac arteries: No acute findings. No occlusion or significant stenosis. Lung bases: Unremarkable. No mass. No consolidation. ABDOMEN: Liver: Unremarkable. No mass. Gallbladder and bile ducts: Unremarkable. No calcified stones. No ductal dilation. Pancreas: Unremarkable. No ductal dilation. No mass. Spleen: Unremarkable. No splenomegaly. Adrenals: Unremarkable. No mass. Kidneys and ureters: Unremarkable. No hydronephrosis. No solid mass. Stomach and bowel: Colonic diverticulosis. No evidence of diverticulitis. No obstruction. PELVIS: Appendix: Normal appendix. Bladder: Unremarkable. No mass. Reproductive: Unremarkable as visualized. ABDOMEN and PELVIS: Intraperitoneal space: Unremarkable. No significant fluid collection. No free air. Bones/joints: Mild celiac axis ostial stenosis. No acute fracture. No dislocation. Soft tissues: Gynecomastia. Lymph nodes: Unremarkable. No enlarged lymph nodes. IMPRESSION: 1. No evidence of traumatic aortic injury within the visualized aorta or subsequent branches. 2. No evidence of aortic aneurysm or dissection along the aorta or subsequent branches. 3. Mild celiac axis ostial stenosis. 4. No other acute findings. 5. Incidental findings as described. Electronically signed by: Bill Suresh MD 07/09/23 04:19 AM
[2023-07-09] MEDS ORDERED: LORazepam 1 MG in SYRINGE 0.5 ML IV PRN (05:34)
[2023-07-09] MEDS ORDERED: LORazepam 2 MG in SYRINGE 1 ML IV PRN (05:34)
[2023-07-09] MEDS ORDERED: LORazepam 3 MG in SYRINGE 1.5 ML IV PRN (05:34)
[2023-07-09] MEDS ORDERED: Ativan IV Alcohol Withdrawal--Active Protocol IV PRN (05:34)
[2023-07-09] MEDS ORDERED: THIAMINE HCL 100 MG/ML 2 ML VIAL IM STA (05:34)
--- NOTE | 2023-07-09 05:40 | History & Physical Report ---
Date of Service July 09, 2023 Assessment & Plan (1) Syncope and collapse: (2) Acute hypotension: (3) Acute dehydration: (4) PRESLEY (acute kidney injury): (5) Upper back pain: (6) Neck pain: (7) Polyarthralgia: (8) Elevated lactic acid level: (9) Alcohol intoxication: (10) Hyperlipidemia: (11) Carotid artery plaque: (12) Hypertension: Plan Syncope and collapse/acute hypotension/dehydration- Lowest recorded blood pressure 73/60, with improvement to 112/60 after 3 liters normal saline Give an additional 1 L normal saline bolus now, then maintenance fluids normal saline at 100 mL/h Patient did require Levophed briefly to maintain blood pressure while becoming rehydrated, and has successfully maintained blood pressure in the 112 area off of Levophed Polyarthralgia, generalized fatigue, generalized weakness- Patient reports symptoms began about 4 days ago with a 24-hour interval of aching and feeling feverish, which she thought was a virus, which did improve somewhat. He did pass out 2 days after the first symptoms, but continued to try to drink what he thought was enough fluids His reports that he was out mowing the lawn over the past week. Patient will have testing added: CK to assess for possible rhabdomyolysis, and tickborne illnesses panel Acetaminophen 650 mg by mouth every 6 hours as needed for mild pain or fever Tramadol 50 mg by mouth every 4 hours as needed for moderate pain Dilaudid 0.5 mg IV every 3 hours as needed for severe pain Patient did receive fentanyl 50 mcg IV and Dilaudid 0.5 mg IV from the ED Of note, COVID, flu and RSV studies negative Acute kidney injury- Creatinine 2.82, with base 1.23 Hold olmesartan Received 3 L normal saline from the ED Will give an additional fourth liter bolus now, and then maintenance fluids at 100 mL/h Repeat renal function panel at this time, and then every morning Ordering CK as noted above to check for rhabdomyolysis and follow serially if elevated Alcohol intoxication- Alcohol level 150.8 Patient reports he drinks several small glasses of wine daily He has never had issues with alcohol withdrawal, but will be placed on AWSS protocol Thiamine 100 mg IV now, and then 100 mg p.o. every morning Folic acid 1 mg IV now, and then 1 mg p.o. every morning Carotid artery plaquing- Continue clopidogrel 75 mg daily Hyperlipidemia- Temporarily hold rosuvastatin History of Present Illness Chief Complaint: The patient presents to the emergency department with complaint of neck, upper back and bilateral arm pain after 2 syncopal episodes this evening. The patient reports he first had symptoms on Wednesday night, 4 nights ago, when he had some generalized muscle aches the last about 24 hours and thought related to a viral process. He felt better the next day Wednesday, and then the following day Wednesday he passed out 1 time when going from sitting to standing. He has been feeling generally achy and fatigued the next day Wednesday, however made today okay. The day of admission today , he had 2 syncopal episodes. First time he fell backwards, was seen by EMS, who placed a cervical collar on him. He insisted on walking to the stretcher, and en route to the stretcher he passed out a second time. The first time this evening, the patient was on unwitnessed, but the heard a loud noise, and ran to find him laying on the floor. The second episode this evening, EMS reports that the patient became hypotensive. Upon arrival to the emergency department, the patient was hypotensive, received aggressive fluid resuscitation, and did transiently need to be on Levophed. Once his blood pressure improved with 3 L of fluid resuscitation, Levophed a was able to be discontinued. Lowest blood pressure recorded in the ED was 73/60, and after 3 L of fluid was maintained 112/64. Primary Care Provider: Zack Adamson MD The patient is a 62-year-old male with a past medical history including hypertension, hyperlipidemia, carotid artery plaquing and daily alcohol use. He presents to the emergency department with symptoms as noted above. Prior to 4 days ago, he had not had any symptoms were related to syncope and or collapse. He reports drinking several small glasses of wine daily, and last night's intake was roughly the same as usual. Allergies Allergy/AdvReac Type Severity Reaction Status Date / Time No Known Allergies Allergy Unknown Verified 07/08/23 23:44 Home Medications Medication Instructions Recorded Confirmed Type rosuvastatin 20 mg tablet 20 mg PO DAILY #90 tabs 09/15/22 07/08/23 Rx clopidogrel 75 mg tablet 75 mg PO DAILY #90 tabs 06/22/23 07/08/23 Rx olmesartan 40 mg tablet 40 mg PO DAILY #90 tabs 06/22/23 07/08/23 Rx multivitamin 1 tab PO DAILY 07/08/23 07/08/23 History Past Med/Surg History Medical History (Updated 07/09/23 @ 06:27 by Alverto Sanchez MD) Hypertension Hyperlipidemia Carotid artery plaque Leukopenia Surgical History S/P foot surgery, right 2003 - right plantar fascia foot surgery Family History Denies family history of Ovarian cancer Prostate cancer Myocardial infarction Breast cancer Colorectal cancer Social History (Updated 06/22/23 @ 07:58 by Faraz Solano LPN) Smoking Status: Never smoker Second Hand Exposure: No; Do You Dip or Chew Tobacco: No; Hx Alcohol Use: Yes Alcohol type: beer Alcohol Intake Frequency Comment: about 4-5 drinks per night about 5 days per week. Hx Substance Use: No Preferred Language: Georgian Visual Impairment: No Limitations Hearing Ability: Normal marital status: Current Living Situation: Family current occupational status: employed current occupation: undergraduate advisor Feels Safe at Home: Yes Diet: other Diet Comment: healthy diet caffeine: Yes Dental Care, Regularly: Yes Physical Activity Frequency: 1-2 Times per Week Physical Activity Frequency Comment: Has slown down since he injured his elbow. Seatbelt Use: always Sunscreen Use: Yes Review of Systems Review of Systems: The patient denies chest pain, palpitations, shortness of breath, dyspnea on exertion, cough, lower extremity swelling, sore throat, fevers, chills, sweats, nausea, vomiting, diarrhea , constipation, abdominal pain, pelvic pain, blood in urine or stool, dysuria, urinary frequency or urgency, rash, abnormal bruising or bleeding, focal weakness, numbness or tingling in arms or legs, or night sweats. The review of systems is otherwise negative other than for that already noted above, and at least 10 systems have been reviewed. Physical Exam Physical Exam: The patient is awake, alert and oriented 3, well developed and well nourished, normocephalic and atraumatic, lying in bed and in mild distress secondary to generalized myalgias HEENT--PERRL, EOMI, mucous membranes and oropharynx mildly dry. Neck--supple. No JVD. No bruits. Thyroid normal, trachea midline, no adenopathy. Heart--normal S1 and S2. No murmurs, rubs or gallops. Lungs--clear bilaterally, no respiratory distress, no accessory muscle use. Abdomen--normal bowel sounds and soft. Nontender. Nondistended, no hernias or masses, no organomegaly. Extremities--No edema. Dermatologic--normal skin turgor, normal color, no abnormal lymph nodes, no rash. Neurologic--cranial nerves II through XII grossly intact. Rheumatologic--full, normal range of motion but slow due to generalized aching Psychiatric--normal affect. Results & Data Results & Data Vital Signs (Past 12 Hours) Vital Signs Temp Pulse Pulse Resp BP BP Pulse Ox 07/09/23 03:51 75 07/09/23 03:30 86 20 118/76 99 07/09/23 02:42 92 H 134/80 99 07/09/23 02:25 99 H 18 108/74 96 07/09/23 02:20 92 H 17 122/78 96 07/09/23 02:15 93 H 16 118/78 96 07/09/23 02:10 93 H 17 119/79 95 07/09/23 02:05 96 H 16 120/73 94 07/09/23 02:00 92 H 17 137/81 96 07/09/23 01:50 93 H 20 129/89 97 07/09/23 01:45 89 16 137/86 98 07/09/23 01:40 90 17 124/85 97 07/09/23 01:35 135/85 07/09/23 01:30 94 H 22 126/83 97 07/09/23 01:25 92 H 22 128/80 97 07/09/23 01:20 93 H 20 129/88 96 07/09/23 01:15 92 H 18 131/86 95 07/09/23 01:05 91 H 18 131/80 97 07/09/23 01:00 90 20 129/84 97 07/09/23 00:55 89 18 117/97 99 07/09/23 00:50 89 20 117/77 100 07/09/23 00:45 88 23 117/74 99 07/09/23 00:41 93 H 20 123/93 93 07/09/23 00:05 79 22 126/72 92 07/09/23 00:00 80 18 90/59 L 96 07/08/23 23:45 84 16 84/62 L 97 07/08/23 23:40 81 18 78/53 L 97 07/08/23 23:38 85 16 77/56 L 98 07/08/23 23:31 75 21 68/54 L 94 07/08/23 23:30 80 23 98 07/08/23 23:30 79 20 98 07/08/23 23:26 73 16 66/47 L 95 07/08/23 23:22 73 20 73/45 L 97 07/08/23 23:19 71 07/08/23 23:14 36.8 C 74 21 73/60 L 100 O2 Del Method 07/09/23 03:51 07/09/23 03:30 Room Air 07/09/23 02:42 07/09/23 02:25 07/09/23 02:20 07/09/23 02:15 07/09/23 02:10 07/09/23 02:05 07/09/23 02:00 07/09/23 01:50 07/09/23 01:45 07/09/23 01:40 07/09/23 01:35 07/09/23 01:30 07/09/23 01:25 07/09/23 01:20 07/09/23 01:15 07/09/23 01:05 07/09/23 01:00 07/09/23 00:55 07/09/23 00:50 07/09/23 00:45 07/09/23 00:41 07/09/23 00:05 07/09/23 00:00 07/08/23 23:45 07/08/23 23:40 07/08/23 23:38 07/08/23 23:31 07/08/23 23:30 Room Air 07/08/23 23:30 Room Air 07/08/23 23:26 07/08/23 23:22 Room Air 07/08/23 23:19 07/08/23 23:14 Room Air Laboratory Results Laboratory Results WBC 6.61 K/ul (4.8-10.8) 07/08/23 23:21 RBC 4.51 M/uL (4.70-6.10) L 07/08/23 23:21 Hgb 14.6 g/dl (14.0-18.0) 07/08/23 23:21 POC Hgb 14.6 g/dl (14.0-18.0) 07/08/23 23:26 Hct 42.3 % (42.0-52.0) 07/08/23 23: POC Hct 43 % (42-52) 07/08/23 23: MCV 93.8 fL (80.0-100.0) 07/08/23 23:21 MCH 32.4 pg (25.0-34.0) 07/08/23 23: MCHC 34.5 g/dL (32.0-36.0) 07/08/23 23: RDW Std Deviation 41.3 fL (36.4-46.3) 07/08/23 23: RDW Coeff of Heydi 11.9 % (11.5-14.5) 07/08/23 23: Plt Count 269 K/uL (130-400) 07/08/23 23:21 MPV 10.1 fL (9.4-12.4) 07/08/23 23:21 Immature Gran % (Auto) 0.3 % 07/08/23 23:21 Neut % (Auto) 45.5 % 07/08/23 23:21 Lymph % (Auto) 41.1 % 07/08/23 23:21 [place] % (Auto) 10.7 % 07/08/23 23:21 Eos % (Auto) 1.8 % 07/08/23 23:21 Baso % (Auto) 0.6 % 07/08/23 23:21 Neut # (Auto) 3.00 K/uL (1.40-6.50) 07/08/23 23:21 Lymph # (Auto) 2.72 K/uL (1.20-3.40) 07/08/23 23:21 [place] # (Auto) 0.71 K/uL (0.11-0.59) H 07/08/23 23:21 Eos # (Auto) 0.12 K/uL (0.00-0.50) 07/08/23 23:21 Baso # (Auto) 0.04 K/uL (0.00-0.20) 07/08/23 23:21 Immature Gran # (Auto) 0.02 K/uL (0.01-0.20) 07/08/23 23:21 PT 10.3 Seconds (9.0-12.0) 07/08/23 23:21 INR 0.9 (0.9-1.1) 07/08/23 23:21 POC Sodium 137 mmol/L (135-144) 07/08/23 23:26 Sodium 136 mmol/L (136-145) 07/08/23 23:21 POC Potassium 3.6 mmol/L (3.3-5.0) 07/08/23 23:26 Potassium 3.5 mmol/L (3.5-5.1) 07/08/23 23:21 POC Chloride 100 mmol/L (101-112) L 07/08/23 23:26 Chloride 101 mmol/L (98-107) 07/08/23 23:21 Carbon Dioxide 23 mmol/L (21-32) 07/08/23 23:21 POC Total CO2 25 mmol/L (24-31) 07/08/23 23:26 Anion Gap 12 (3-11) H 07/08/23 23:21 POC Anion Gap 17.0 mmol/L (16-25) 07/08/23 23:26 POC BUN 42 mg/dl (7-18) H 07/08/23 23:26 BUN 47 mg/dl (6-23) H 07/08/23 23:21 Creatinine 2.82 mg/dl (0.6-1.4) H 07/08/23 23:21 POC Creatinine 3.0 mg/dl (0.6-1.3) H 07/08/23 23:26 Est Cr Clr Drug Dosing 29.8 ml/min 07/08/23 23:21 Est GFR ( Amer) 26.6 ml/min 07/08/23 23:21 Est GFR (Non-Af Amer) 22.9 ml/min 07/08/23 23:21 BUN/Creatinine Ratio 16.7 (10-20) 07/08/23 23:21 Glucose 101 mg/dl (70-99(Fasting)) H 07/08/23 23:21 POC Glucose (other) 95 mg/dl (70-99) 07/08/23 23:26 Lactate 2.1 mmol/L (0.4-2.0) H* 07/09/23 03:48 Calcium 9.2 mg/dl (8.6-10.3) 07/08/23 23:21 POC Ioniz Calcium Juan Antonio 1.07 mmol/l (1.12-1.32) L 07/08/23 23:26 Magnesium 2.6 mg/dl (1.7-2.4) H 07/08/23 23:21 Total Bilirubin 0.6 mg/dl (0.2-1.0) 07/08/23 23:21 AST 21 U/L (13-39) 07/08/23 23:21 ALT 30 U/L (7-52) 07/08/23 23:21 Alkaline Phosphatase 61 U/L (34-104) 07/08/23 23:21 Troponin I High Sens 3.7 pg/ml (0-20) 07/08/23 23:21 Total Protein 7.1 gm/dl (6.0-8.3) 07/08/23 23:21 Albumin 4.3 gm/dl (3.4-5.0) 07/08/23 23:21 Globulin 2.8 gm/dl (2.5-4.0) 07/08/23 23:21 Albumin/Globulin Ratio 1.5 (0.9-2) 07/08/23 23:21 Procalcitonin 0.40 ng/ml (0-0.5) 07/08/23 23:21 Ethyl Alcohol mg/dL 150.8 mg/dl (<10.0) H 07/08/23 23:40 SARS-CoV-2 (PCR) NEGATIVE (Negative) 07/09/23 04:40 Influenza Type A (PCR) Negative (Neg) 07/09/23 04:40 Influenza Type B (PCR) Negative (Neg) 07/09/23 04:40 RSV (RT-PCR) Negative (Neg) 07/09/23 04:40 Blood Type O Positive 07/08/23 23:40 Antibody Screen NEGATIVE 07/08/23 23:[address] 07/08/23 23:24 Exam(s): CT C SPINE EXAM: CT Cervical Spine Without Intravenous Contrast CLINICAL HISTORY: Reason for exam: neck pain s/p fall from standing. TECHNIQUE: Axial computed tomography images of the cervical spine without intravenous contrast. CTDI is 36.55 mGy and DLP is 4923.4 mGy-cm. Automated exposure control was utilized for the study. A dose lowering technique was utilized adhering to the principles of ALARA. COMPARISON: No relevant prior studies available. FINDINGS: Vertebrae: Unremarkable. No acute fracture. Discs/spinal canal/neural foramina: Multilevel cervical spondylopathy resulting in varying degrees of canal or foraminal stenosis Soft tissues: Unremarkable. IMPRESSION: No acute osseous pathology Multilevel cervical spondylopathy resulting in varying degrees of canal or foraminal stenosis Electronically signed by: Yonny Freedman MD 07/09/23 02:[address] 07/08/23 23:24 Exam(s): CT HEAD Without Contrast EXAM: CT Head Without Intravenous Contrast CLINICAL HISTORY: Reason for exam: confusion; fall from standing. TECHNIQUE: Axial computed tomography images of the head/brain without intravenous contrast. CTDI is 36.55 mGy and DLP is 4923.4 mGy-cm. Automated exposure control was utilized for the study. A dose lowering technique was utilized adhering to the principles of ALARA. COMPARISON: No relevant prior studies available. FINDINGS: Brain: Unremarkable. No hemorrhage. No significant white matter disease. No edema. Ventricles: Unremarkable. No ventriculomegaly. Bones/joints: Unremarkable. No acute fracture. Soft tissues: Unremarkable. Sinuses: Unremarkable as visualized. No acute sinusitis. Mastoid air cells: Unremarkable as visualized. No mastoid effusion. IMPRESSION: Normal head/brain CT. Electronically signed by: Yonny Freedman MD 07/09/23 02:[address] 07/08/23 23:24 Exam(s): CT T SPINE EXAM: CT Thoracic Spine Without Intravenous Contrast CLINICAL HISTORY: Reason for exam: upper back pain s/p fall from standing. TECHNIQUE: Axial computed tomography images of the thoracic spine without intravenous contrast. CTDI is 36.55 mGy and DLP is 4923.4 mGy-cm. Automated exposure control was utilized for the study. A dose lowering technique was utilized adhering to the principles of ALARA. COMPARISON: No relevant prior studies available. FINDINGS: Vertebrae: Unremarkable. No acute fracture. Discs/spinal canal/neural foramina: No acute findings. No spinal canal stenosis. Soft tissues: Unremarkable. IMPRESSION: Normal thoracic spine CT. Electronically signed by: Yonny Freedman MD 07/09/23 02:25 AM Chest CTA 07/08/23 23:28 Exam(s): CTA CHEST W/WO Contrast IV Amt: 118 ml opti 320 EXAM: CT Angiography Chest Without and With Intravenous Contrast CLINICAL HISTORY: Reason for exam: recurrent syncopal episodes; hypotension. TECHNIQUE: Axial computed tomographic angiography images of the chest without and with intravenous contrast. CTDI is 36.55 mGy and DLP is 4923.4 mGy-cm. Automated exposure control was utilized for the study. A dose lowering technique was utilized adhering to the principles of ALARA. MIP reconstructed images were created and reviewed. CONTRAST: Patient received 118 ml opti 320 of IV contrast COMPARISON: No relevant prior studies available. FINDINGS: Pulmonary arteries: No central pulmonary embolus Aorta: No acute findings. No thoracic aortic aneurysm. Lungs: Unremarkable. No mass. No consolidation. Pleural space: Unremarkable. No significant effusion. No pneumothorax. Heart: Unremarkable. No cardiomegaly. No significant pericardial effusion. No evidence of RV dysfunction. Bones/joints: No acute fracture. No dislocation. Soft tissues: Unremarkable. Lymph nodes: Unremarkable. No enlarged lymph nodes. IMPRESSION: Normal chest CTA. Electronically signed by: Yonny Freedman MD 07/09/23 04:01 AM Abdomen/Pelvis CTA 07/08/23 23:40 Exam(s): CTA ABDOMEN + PELVIS With Contrast IV Amt: 118 ml opti 320 EXAM: CT Angiography Abdomen and Pelvis With Intravenous Contrast CLINICAL HISTORY: Reason for exam: trauma; syncope. TECHNIQUE: Axial computed tomographic angiography images of the abdomen and pelvis with intravenous contrast. CTDI is 36.55 mGy and DLP is 4923.4 mGy-cm. Automated exposure control was utilized for the study. A dose lowering technique was utilized adhering to the principles of ALARA. MIP reconstructed images were created and reviewed. CONTRAST: Patient received 118 ml opti 320 of IV contrast COMPARISON: No relevant prior studies available. FINDINGS: VASCULATURE: Aorta: No evidence of aortic aneurysm or dissection along the aorta or subsequent branches. Celiac trunk and mesenteric arteries: No acute findings. No occlusion or significant stenosis. Renal arteries: No acute findings. No occlusion or significant stenosis. Iliac arteries: No acute findings. No occlusion or significant stenosis. Lung bases: Unremarkable. No mass. No consolidation. ABDOMEN: Liver: Unremarkable. No mass. Gallbladder and bile ducts: Unremarkable. No calcified stones. No ductal dilation. Pancreas: Unremarkable. No ductal dilation. No mass. Spleen: Unremarkable. No splenomegaly. Adrenals: Unremarkable. No mass. Kidneys and ureters: Unremarkable. No hydronephrosis. No solid mass. Stomach and bowel: Colonic diverticulosis. No evidence of diverticulitis. No obstruction. PELVIS: Appendix: Normal appendix. Bladder: Unremarkable. No mass. Reproductive: Unremarkable as visualized. ABDOMEN and PELVIS: Intraperitoneal space: Unremarkable. No significant fluid collection. No free air. Bones/joints: Mild celiac axis ostial stenosis. No acute fracture. No dislocation. Soft tissues: Gynecomastia. Lymph nodes: Unremarkable. No enlarged lymph nodes. IMPRESSION: 1. No evidence of traumatic aortic injury within the visualized aorta or subsequent branches. 2. No evidence of aortic aneurysm or dissection along the aorta or subsequent branches. 3. Mild celiac axis ostial stenosis. 4. No other acute findings. 5. Incidental findings as described. Electronically signed by: Bill Suresh MD 07/09/23 04:19 AM Code Status & VTE Plan Code Status Full code PG Care Time/CCT Total # of Minutes Spent Total Time Spent with Patient: Total time spent is greater than 50% in coordination of care (as documented) at patient's floor/unit and/or counseling patient: Coding Level of Care Code 29026 INT INP/OBS CARE 3/75MIN Diagnoses Syncope and collapse R55 Acute hypotension I95.9 Acute dehydration E86.0 PRESLEY (acute kidney injury) N17.9 Upper back pain M54.9 Neck pain M54.2 Polyarthralgia M25.50 Elevated lactic acid level R79.89 Alcohol intoxication F10.929 Pure hypercholesterolemia E78.00 Hyperlipidemia type: pure hypercholesterolemia Atherosclerosis of both carotid arteries I65.23 Laterality: bilateral Primary hypertension I10 Hypertension type: primary hypertension (10) Hyperlipidemia Hyperlipidemia type: pure hypercholesterolemia Qualified Code(s): E78.00 - Pure hypercholesterolemia, unspecified (11) Carotid artery plaque Laterality: bilateral Qualified Code(s): I65.23 - Occlusion and stenosis of bilateral carotid arteries (12) Hypertension Hypertension type: primary hypertension Qualified Code(s): I10 - Essential (primary) hypertension
[2023-07-09 05:42] LABS: Influenza A virus by PCR Negative (Neg); Influenza B virus by PCR Negative (Neg); RSV by PCR Negative (Neg); SARS CoV2 RNA(COVID-19) Ceph NEGATIVE (Negative)
[2023-07-09] MEDS: BACLOFEN 10 MG TAB PO SCH (06:18)
[2023-07-09] MEDS: FOLIC ACID 1 MG in SYRINGE 9.8 ML IV SCH (06:24)
[2023-07-09 06:35] LABS: Albumin Level 3.8 gm/dl (3.4-5.0); Calcium 8.5 mg/dl (8.6-10.3); Creatinine Clr Calc Pharmacy 46.7 ml/min; Est GFR (African American) 45.7 ml/min; Est GFR (Non-African American) 39.5 ml/min; Phosphorus 2.6 mg/dl (2.5-4.9); Potassium 4.1 mmol/L (3.5-5.1)
[2023-07-09] MEDS: THIAMINE HCL 100 MG/ML 2 ML VIAL IM SCH (06:39)
--- NOTE | 2023-07-09 06:45 | XRay Report ---
XR chest 1V portable CLINICAL HISTORY: dizziness COMPARISON STUDY: Chest radiograph September 24, 2015. Chest CT July 09, 2023 at 12:16 AM. FINDINGS: Lung volumes are normal. No consolidation is identified. Linear left basilar densities favo r atelectasis. There is no pneumothorax or pleural effusion. There is mild cardiomegaly. Mediastinal contours are normal. There is no evidence for pulmonary edema. IMPRESSION: No acute cardiopulmonary findings. ACT 112: Negative or not required by law. Electronically signed by: Paddy Ngo M.D. 07/09/2023 6:43 AM
[2023-07-09 07:05] LABS: Appearance Urine Clear (Clear); Bilirubin Urine Negative (Negative); Blood Urine Trace-intact (Negative); Color Urine Yellow; Glucose Urine UA Negative (Negative); Ketones Urine Negative (Negative); Leukocyte Esterase Urine Negative (Negative); Nitrite Urine Negative (Negative); Protein Urine Negative (Negative); Specific Gravity Urine 1.015 (1.000-1.030); Urobilinogen Urine Negative (Negative)
[2023-07-09] MEDS: HYDROmorphone INJ 0.5 MG/0.5 ML SYR IV PRN (07:29)
[2023-07-09] MEDS: CLOPIDOGREL BISULFATE 75 MG TAB PO SCH (07:29)
[2023-07-09] MEDS: THIAMINE HCL 100 MG TAB PO SCH (07:29)
[2023-07-09] MEDS: MULTIVITAMIN TAB PO SCH (07:29)
[2023-07-09] MEDS ORDERED: methylPREDNISolone 10 mg/mL (For Ped Dose < 7mg) IV SCH (08:00)
[2023-07-09] MEDS: SODIUM CHLORIDE 0.9% 1,000 ML IV SCH (08:08)
[2023-07-09 08:56] LABS: Bacteria Urine None Seen (None Seen); Epithelial Cell Urine 0-2 /hpf (0-2); RBC Urine 0-2 /hpf (0-2); WBC Urine 0-5 /hpf (0-5)
[2023-07-09] MEDS ORDERED: FOLIC ACID 1 MG TAB PO SCH (09:00)
[2023-07-09] MEDS ORDERED: ROSUVASTATIN CALCIUM 20 MG TAB PO SCH (09:00)
[2023-07-09] MEDS ORDERED: ONDANSETRON INJ 2 MG/ML 2 ML VIAL IV PRN (09:28)
[2023-07-09] MEDS: methylPREDNISolone 40 MG in SYRINGE 0 ML IV SCH (10:55)
[2023-07-09] MEDS: ENOXAPARIN INJ 40 MG/0.4 ML SYR SQ SCH (10:58)
--- NOTE | 2023-07-09 11:12 | Hospitalist Progress Note ---
Date of Service July 09, 2023 Assessment & Plan (1) Viral illness: Plan: Causing volume depletion, orthostasis, and subsequent syncope. Continue IV fluids. Supportive care. Parenteral Solu-Medrol will help with his symptoms (2) Cervical radiculopathy: Plan: Left arm. X-ray pending. Continue parenteral Solu-Medrol. Will follow with C- spine MRI if x-rays are markedly abnormal (3) Syncope and collapse: Plan: Due to volume depletion and orthostasis. No recurrence. Continue IV fluids (4) Acute hypotension: Plan: Present on admission. No recurrence. Continue IV fluids (5) Acute dehydration: Plan: Due to viral illness. Continue IV fluids (6) PRESLEY (acute kidney injury): Plan: Prerenal. Due to volume depletion. Continue IV fluids. Serial labs. Monitor intake and output (7) Alcohol intoxication: Plan: Mild on admission. No history of withdrawal symptoms. Supportive care (8) Hypertension: Plan: Antihypertensive medications are temporarily on hold. Plan Hopefully home tomorrow on a prednisone tapering dose, July 09 Admission and Anticipated Discharge Date Admission Date: July 09, 2023 Subjective Alert and oriented. He has left upper extremity cervical radiculopathy symptoms that come and go. He is now on parenteral steroid therapy. C-spine x-ray will be obtained. If this is markedly abnormal will follow with C-spine MRI. Creatinine has improved to 1.8 and should return to baseline with continued IV fluid rehydration. Hopefully he can go home tomorrow, July 09, on an oral prednisone tapering dose Review of Systems 2 Review of Systems: Constitutional-no fever or chills ENT-no blurred vision, no double vision, no epistaxis, no sore throat Respiratory-no cough, no wheezing, no shortness of breath Cardiac-no palpitations, no chest pain, no syncope GI-no nausea, vomiting, diarrhea, melena, hematochezia -no urinary retention, no urinary incontinence, no dysuria, no hematuria Musculoskeletal-intermittent left arm pain, no muscle tenderness Skin-no bruising, no rashes, no pruritus Neuro-no isolated weakness, no paresthesia. Intermittent left arm pain consistent with cervical radiculopathy Psych-no depression, no anxiety Physical Exam 2 Physical Exam: General-alert and oriented x3, no fever, no chills HEENT-head atraumatic and normocephalic, , pupils equal and reactive to light, extraocular muscles intact Neck-no lymphadenopathy or thyromegaly, trachea midline Chest-clear to auscultation. No rales, wheezing or rhonchi Cardiac-regular rate and rhythm, normal S1 and S2, no murmurs Abdomen-normal bowel sounds, nontender, no hepatosplenomegaly Extremities-no cyanosis, clubbing, or edema Neuro-cranial nerves II through XII intact, motor and sensory function within normal limits, strength symmetrical, no focal deficits. Left arm pain comes and goes consistent with cervical radiculopathy Psych-normal affect, normal mood Results & Data Results & Data Vital Signs (Past 12 Hours) Vital Signs Temp Pulse Pulse Pulse Resp BP BP 07/09/23 09:04 36.8 C 76 18 126/82 07/09/23 08:51 77 18 155/93 H 07/09/23 08:08 77 07/09/23 07:38 84 17 120/72 07/09/23 07:30 84 17 120/72 07/09/23 06:30 36.9 C 77 18 103/87 07/09/23 03:51 75 07/09/23 03:30 86 20 118/76 07/09/23 02:42 92 H 134/80 07/09/23 02:25 99 H 18 108/74 07/09/23 02:20 92 H 17 122/78 07/09/23 02:15 93 H 16 118/78 07/09/23 02:10 93 H 17 119/79 07/09/23 02:05 96 H 16 120/73 07/09/23 02:00 92 H 17 137/81 07/09/23 01:50 93 H 20 129/89 07/09/23 01:45 89 16 137/86 07/09/23 01:40 90 17 124/85 07/09/23 01:35 135/85 07/09/23 01:30 94 H 22 126/83 07/09/23 01:25 92 H 22 128/80 07/09/23 01:20 93 H 20 129/88 07/09/23 01:15 92 H 18 131/86 07/09/23 01:05 91 H 18 131/80 07/09/23 01:00 90 20 129/84 07/09/23 00:55 89 18 117/97 07/09/23 00:50 89 20 117/77 07/09/23 00:45 88 23 117/74 07/09/23 00:41 93 H 20 123/93 07/09/23 00:05 79 22 126/72 07/09/23 00:00 80 18 90/59 L 07/08/23 23:45 84 16 84/62 L 07/08/23 23:40 81 18 78/53 L 07/08/23 23:38 85 16 77/56 L 07/08/23 23:31 75 21 68/54 L 07/08/23 23:30 80 23 07/08/23 23:30 79 20 07/08/23 23:26 73 16 66/47 L 07/08/23 23:22 73 20 73/45 L 07/08/23 23:19 71 07/08/23 23:14 36.8 C 74 21 73/60 L Pulse Ox O2 Del Method 07/09/23 09:04 100 Room Air 07/09/23 08:51 98 Room Air 07/09/23 08:08 07/09/23 07:38 98 Room Air 07/09/23 07:30 98 Room Air 07/09/23 06:30 97 Room Air 07/09/23 03:51 07/09/23 03:30 99 Room Air 07/09/23 02:42 99 07/09/23 02:25 96 07/09/23 02:20 96 07/09/23 02:15 96 07/09/23 02:10 95 07/09/23 02:05 94 07/09/23 02:00 96 07/09/23 01:50 97 07/09/23 01:45 98 07/09/23 01:40 97 07/09/23 01:35 07/09/23 01:30 97 07/09/23 01:25 97 07/09/23 01:20 96 07/09/23 01:15 95 07/09/23 01:05 97 07/09/23 01:00 97 07/09/23 00:55 99 07/09/23 00:50 100 07/09/23 00:45 99 07/09/23 00:41 93 07/09/23 00:05 92 07/09/23 00:00 96 07/08/23 23:45 97 07/08/23 23:40 97 07/08/23 23:38 98 07/08/23 23:31 94 07/08/23 23:30 98 Room Air 07/08/23 23:30 98 Room Air 07/08/23 23:26 95 07/08/23 23:22 97 Room Air 07/08/23 23:19 07/08/23 23:14 100 Room Air Laboratory Results 07/08/23 23:21 07/09/23 05:59 PG Care Time/CCT Total # of Minutes Spent Total Time Spent with Patient: Total time spent is greater than 50% in coordination of care (as documented) at patient's floor/unit and/or counseling patient: Coding Level of Care Code 71445 SUB INP/OBS CARE 3/50MIN Diagnoses Viral illness B34.9 Cervical radiculopathy M54.12 Syncope and collapse R55 Acute hypotension I95.9 Acute dehydration E86.0 PRESLEY (acute kidney injury) N17.9 Alcohol intoxication F10.929 Primary hypertension I10 Hypertension type: primary hypertension (8) Hypertension Hypertension type: primary hypertension Qualified Code(s): I10 - Essential (primary) hypertension
[2023-07-09] MEDS: traMADol HCL 50 MG TABLET PO PRN (11:57)
--- NOTE | 2023-07-09 12:00 | XRay Report ---
XR cervical spine 2 or 3V CLINICAL HISTORY: Cervical radiculopathy COMPARISON STUDY: Cervical spine CT July 09, 2023. FINDINGS: Straightening of the cervical lordosis. Vertebral body heights are maintained. No cervical spine fractures identified. There are no osseous lesions. There is moderate disc space narrowing at C 6-C7. Moderate anterior cervical spine osteophytes is present. There is mild facet arthrosis within t he cervical spine. IMPRESSION: 1. No acute cervical spine fractures. 2. Moderate degenerative changes within the cervical spine. ACT 112: Negative or not required by law. Electronically signed by: Paddy Ngo M.D. 07/09/2023 11:59 AM
[2023-07-09] MEDS: ACETAMINOPHEN 325 MG TAB PO PRN (17:55)
[2023-07-09] MEDS: ZOLPIDEM TARTRATE 5 MG TAB PO SCH (20:37)
--- NOTE | 2023-07-10 05:57 | Electrocardiogram Report ---
Test Reason : Blood Pressure : / mmHG Vent. Rate : 072 BPM Atrial Rate : 072 BPM P-R Int : 174 ms QRS Dur : 096 ms QT Int : 394 ms P-R-T Axes : 038 -40 013 degrees QTc Int : 431 ms Normal sinus rhythm Left axis deviation Low voltage QRS Abnormal ECG When compared with ECG of 25-SEP-2005 06:37, T wave amplitude has increased in Lateral leads Confirmed by Zack Parikh ([id number]) on 07/10/2023 5:56:52 AM Referred By: REFERRED SELF Confirmed By:Carlos Parikh
[2023-07-10 06:37] LABS: Basophils # (auto) 0.02 K/uL (0.00-0.20); Basophils % (auto) 0.2 %; Hematocrit (blood only) 39.2 % (42.0-52.0); Hemoglobin 13.7 g/dl (14.0-18.0); Immature Granulocytes # (auto) 0.05 K/uL (0.01-0.20); Immature Granulocytes % (auto) 0.6 %; Lymphocytes % (auto) 10.3 %; Mean Corpuscular Hemoglobin 32.5 pg (25.0-34.0); Mean Corpuscular Hgb Conc 34.9 g/dL (32.0-36.0); Mean Corpuscular Volume 92.9 fL (80.0-100.0); Monocytes # (auto) 0.22 K/uL (0.11-0.59); Monocytes % (auto) 2.5 %; Neutrophils # (auto) 7.59 K/uL (1.40-6.50); Neutrophils % (auto) 86.4 %; Platelet Count 234 K/uL (130-400); RDW Coefficient of Variation 11.8 % (11.5-14.5); Red Blood Count 4.22 M/uL (4.70-6.10); White Blood Count 8.78 K/ul (4.8-10.8)
[2023-07-10 06:43] LABS: Albumin Globulin Ratio 1.6 (0.9-2); Albumin Level 3.9 gm/dl (3.4-5.0); BUN Creatinine Ratio 17.9 (10-20); Bilirubin,Total 0.7 mg/dl (0.2-1.0); Calcium 9.2 mg/dl (8.6-10.3); Creatinine Clr Calc Pharmacy 75.1 ml/min; Est GFR (African American) 81.2 ml/min; Globulin 2.5 gm/dl (2.5-4.0); Magnesium 1.9 mg/dl (1.7-2.4); Potassium 4.6 mmol/L (3.5-5.1); Total Protein 6.4 gm/dl (6.0-8.3)
--- NOTE | 2023-07-10 10:03 | Discharge Summary ---
Date of Service July 10, 2023 Admission HPI Per Admitting Provider The patient is a 62-year-old male with a past medical history including hypertension, hyperlipidemia, carotid artery plaquing and daily alcohol use. He presents to the emergency department with symptoms as noted above. Prior to 4 days ago, he had not had any symptoms were related to syncope and or collapse. He reports drinking several small glasses of wine daily, and last night's intake was roughly the same as usual. Principal Diagnosis Syncope due to viral illness with volume depletion, acute kidney injury, alcohol intoxication, left upper extremity C6-C7 cervical radiculopathy Discharge Exam General-alert and oriented x3, no fever, no chills HEENT-head atraumatic and normocephalic, , pupils equal and reactive to light, extraocular muscles intact Neck-no lymphadenopathy or thyromegaly, trachea midline Chest-clear to auscultation. No rales, wheezing or rhonchi Cardiac-regular rate and rhythm, normal S1 and S2, no murmurs Abdomen-normal bowel sounds, nontender, no hepatosplenomegaly Extremities-no cyanosis, clubbing, or edema Neuro-cranial nerves II through XII intact, motor and sensory function within normal limits, strength symmetrical, no focal deficits. Left arm pain comes and goes consistent with cervical radiculopathy Psych-normal affect, normal mood Discharge Data Allergies Allergy/AdvReac Type Severity Reaction Status Date / Time No Known Allergies Allergy Unknown Verified 07/08/23 23:44 Consultations 07/09/23 04:50 ED Decision to Admit Stat Ordered Studies 07/08/23 23:24 CT cervical spine wo con Stat CT head/brain wo con Stat CT thoracic spine wo con Stat 07/08/23 23:28 CTA chest dissec wo/w con [CT angio chest dissec wo/w con] Stat 07/08/23 23:40 CTA abdomen pelvis w con [CT angio abdomen pelvis w con] Stat Hospital Course (1) Viral illness: Caused volume depletion, orthostasis, and subsequent syncope. Treated while hospitalized with IV fluids. Supportive care. Symptoms have resolved (2) Cervical radiculopathy: Left arm. X-ray of the C-spine confirms degenerative changes at the C6-C7 level with osteophytes. This may need further outpatient imaging with MRI. Treated while hospitalized with parenteral Solu-Medrol. He will be discharged on a prednisone tapering dose. (3) Syncope and collapse: Due to volume depletion and orthostasis. No recurrence. Treated while hospitalized with IV fluids (4) Acute hypotension: Present on admission. No recurrence. Resolved with IV fluids (5) Acute dehydration: Due to viral illness. Resolved with IV fluids (6) PRESLEY (acute kidney injury): Prerenal. Due to volume depletion. Resolved with IV fluids. Creatinine 1.1 on the day of discharge (7) Alcohol intoxication: Mild on admission. No history of withdrawal symptoms. Resolved (8) Hypertension: Antihypertensive medications were held on admission and will be restarted at discharge Plan Home today, July 09, on a prednisone tapering dose. Total Time Total Time Spent Total Time Spent (In Minutes): 45 minutes Discharge Plan Discharge Items Patient Disposition: Home - Self-Care Reason For Visit: Fall, Neck Pain, Dizziness Discharge Diagnosis: Viral illness, volume depletion, syncope, acute kidney injury, alcohol intoxication, left upper extremity cervical radiculopathy Activity: Resume your previous activity Non-emergency contact: Primary Care Provider Call non-emergency contact if: you have any medication questions and your symptoms worsen Follow-up/Referrals: Zack Adamson MD [Primary Care Provider] - Diet: Regular and Heart Healthy Addtl Attending Provider Instructions: Take prednisone in a tapering dose fashion as directed. Pending Studies at Discharge: Yes Studies:: erlichosis lab Stand-Alone Forms: My [facility] [employer] Education, Smoking Cessation Medications and DC Order Prescriptions: New prednisone 10 mg tablet See Rx Instructions .ROUTE .COMPLEX Qty: 12 0RF Rx Instructions: 10 mg orally 3 times a day for 2 days, then 10 mg twice a day for 2 days, then 10 mg once a day for 2 days, then stop Continued rosuvastatin 20 mg tablet 20 mg PO DAILY Qty: 90 3RF olmesartan 40 mg tablet 40 mg PO DAILY Qty: 90 3RF clopidogrel 75 mg tablet 75 mg PO DAILY Qty: 90 3RF multivitamin Tablet 1 tab PO DAILY Discharge Orders: Discharge Order (Routine); Ordered 07/10/23 Ordered By: Bradford Quintero Admission Data Admit Date/Time: 07/09/23 05:52 Attending Provider: Bradford Quintero Admit Provider: Alverto Sanchez Primary Care Provider: Zack Adamson Other Providers: Alverto Sanchez Coding Level of Care Code 04753 INP/OBS DISCH >30 MIN Diagnoses Viral illness B34.9 Cervical radiculopathy M54.12 Syncope and collapse R55 Acute hypotension I95.9 Acute dehydration E86.0 PRESLEY (acute kidney injury) N17.9 Alcohol intoxication F10.929 Primary hypertension I10 Hypertension type: primary hypertension
[2023-07-12 19:33] LABS: Babesia microti DNA Not Detected (Not Detected)
[2023-07-13 14:08] LABS: Ehrlichia chaff DNA Bld Negative (Negative)
== END 2023-07-10 10:29 | disposition home or self-care (01) | DRG 866 ==
LOC: SUATTDRO → ED 23:08 → 3N 07-09 05:52 → SUATTDRO 07-09 05:52 → 3N 07-09 08:51